=== PATIENT | male | born 1960 | race Two or more races ===

== ENCOUNTER 2018-01-12 11:07 | Inpatient (IN) ==
[2018-01-12] MEDS ORDERED: Bisacodyl 10 MG Supp RECTAL PRN (17:59)
--- NOTE | 2018-01-12 18:44 | P.HPIM ---
History of Present Illness Primary Care Physician: UNKNOWN Patient is a pleasant 57-year-old male with past medical history of asthma, hypertension, hyperlipidemia, and diabetes who presents to emergency department for worsening shortness of breath. Patient in usual state of health prior to development of symptoms 24 hours prior to presentation. Patient reports that he started to experience a cough yesterday nonproductive in nature, with some chest pain occasionally over the left side. Patient denied fever, chills, headache, flushed feeling, dizziness, disequilibrium, falls, wheezing, or GI abdominal pain. Review of systems positive for sore throat, tender neck glands , diarrhea, and generalized weakness. Patient feels much better on evaluation today. Of note patient is an active smoker of approximately 2 packs/day for the last 10 years. Patient denied unintentional weight loss. Patient denied hemoptysis, dysphagia, or odynophagia. No family history of malignancy noted by patient only diabetes in mother. In emergency department patient received imaging concerning for pneumonia for which he was transferred over to [place] for further medical management. Lab work also significant for hyponatremia and white blood cell count of 20. CT angiogram negative for pulmonary embolism but other acute findings noted. Chest x-ray significant for a diffuse patchy interstitial and airspace infiltrates throughout the right lung, upper lung greater than the right lower lung suggestive of pneumonia. Diagnosis (1) Asthma: (2) Hyponatremia: Inpatient Certification Inpatient Certification: I certify that the inpatient services were ordered in accordance with Medicare regulations governing the order. This includes certification that hospital inpatient services are reasonable and necessary and in the case of services not specified as inpatient-only under 42 CFR 419.22(n), that they are appropriately provided as inpatient services in accordance to with the 2-midnight benchmark under 43 CFR 412.3(e) Estimated Total Length of Stay (Days): 3 Plans for Post Hospital Care: Not yet determined Review of Systems Review of Systems: all other systems reviewed are negative [facility] Medical History Medical History COPD (chronic obstructive pulmonary disease) (Acute) Diabetes (Acute) Hypercholesteremia (Acute) Social History Social History Smoking Status: Never smoker How Often Do You Have a Drink Containing Alcohol: Never Medications and Allergies Allergies Allergy/AdvReac Type Severity Reaction Status Date / Time No Known Allergies Allergy Verified 01/12/18 11:20 Home Medications Medication Instructions Recorded Confirmed Type albuterol sulfate [ProAir HFA] 2 inh INHALATION Q4-6H 01/12/18 01/12/18 History atorvastatin 40 mg PO DAILY 01/12/18 01/12/18 History insulin glargine [Lantus Solostar 60 unit SUBCUT HS 01/12/18 01/12/18 History U-100 Insulin] linagliptin [Tradjenta] 5 mg PO DAILY 01/12/18 01/12/18 History metformin 1,000 mg PO BID 01/12/18 01/12/18 History mirtazapine 7.5 mg PO DAILY 01/12/18 01/12/18 History Active Medications: Active Medications Al Hydroxide/Mg Hydroxide (Milk Of Magnesia Liq) 30 ml PO Q12H PRN PRN Reason: Mild Constipation Albuterol (Ventolin Hfa Inh) puff INH Q4-6H DIVYA Atorvastatin Calcium (Lipitor) 40 mg PO HS DIVYA Bisacodyl (Dulcolax Supp) 10 mg RECTAL DAILY PRN PRN Reason: SEVERE CONSITIPATION Heparin Sodium (Porcine) (Heparin Inj) 5,000 units SQ Q8HR DIVYA Sodium Chloride (Ns Inj) 1,000 mls @ 100 mls/hr IV.CONT .Q10H DIVYA Azithromycin 500 mg/ Sodium (Chloride) 250 mls @ 250 mls/hr IV.SIG Q24H DIVYA Ceftriaxone Sodium 2,000 mg/ (Sodium Chloride) 100 mls @ 200 mls/hr IV.SIG Q24H DIVYA Lactulose (Lactulose Liq) 30 ml PO DAILY PRN PRN Reason: SEVERE CONSITIPATION Mirtazapine (Remeron) 7.5 mg PO HS DIVYA Ondansetron HCl (Zofran Inj) 4 mg IV.PUSH Q6H PRN PRN Reason: NAUSEA OR VOMITING Sennosides (Senokot) 17.2 mg PO Q12H PRN PRN Reason: Moderate Constipation Sodium Chloride (Ns Flush) 2 ml IV.FLUSH BID DIVYA Sodium Chloride (Ns Flush) 2 ml IV.FLUSH PRN PRN PRN Reason: FLUSH AFTER USING IV ACCESS Caprini VTE Risk Assessment Caprini VTE Risk Assessment: Moderate/High Risk (score >= 2) Caprini Risk Assessment Model: Point Value = 1 Point Value = 2 Point Value = 3 Point Value = 5 Age 41-60 Minor surgery BMI > 25 kg/m2 Swollen legs Varicose veins or History of unexplained or recurrent spontaneous Oral contraceptives or hormone replacement Sepsis (< 1 month) Serious lung disease, including pneumonia (< 1 month) Abnormal pulmonary function Acute myocardial infarction Congestive heart failure (< 1 month) History of inflammatory bowel disease Medical patient at bed rest Age 61-74 Arthroscopic surgery Major open surgery (> 45 min) Laparoscopic surgery (> 45 min) Malignancy Confined to bed (> 72 hours) Immobilizing plaster cast Central venous access Age >= 75 History of VTE Family history of VTE Factor V Leiden Prothrombin [id number] Lupus anticoagulant Anticardiolipin antibodies Elevated serum homocysteine Heparin-induced thrombocytopenia Other congenital or acquired thrombophilia Stroke (< 1 month) Elective arthroplasty Hip, pelvis, or leg fracture Acute spinal cord injury (< 1 month) Prophylaxis Regimen: Total Risk Factor Score Risk Level Prophylaxis Regimen 0-1 Low Early ambulation 2 Moderate Order ONE of the following: *Sequential Compression Device (SCD) *Heparin 5000 units SQ BID 3-4 Higher Order ONE of the following medications: *Heparin 5000 units SQ TID *Enoxaparin/Lovenox 40 mg SQ daily (WT < 150 kg, CrCl > 30 mL/min) *Enoxaparin/Lovenox 30 mg SQ daily (WT < 150 kg, CrCl > 10-29 mL/min) *Enoxaparin/Lovenox 30 mg SQ BID (WT < 150 kg, CrCl > 30 mL/min) AND/OR *Sequential Compression Device (SCD) 5 or more Highest Order ONE of the following medications: *Heparin 5000 units SQ TID (Preferred with Epidurals) *Enoxaparin/Lovenox 40 mg SQ daily (WT < 150 kg, CrCl > 30 mL/min) *Enoxaparin/Lovenox 30 mg SQ daily (WT < 150 kg, CrCl > 10-29 mL/min) *Enoxaparin/Lovenox 30 mg SQ BID (WT < 150 kg, CrCl > 30 mL/min) AND *Sequential Compression Device (SCD) Assessment and Plan (1) Asthma: Code(s): J45.909 - Unspecified asthma, uncomplicated Status: Acute (2) Hyponatremia: Code(s): E87.1 - Hypo-osmolality and hyponatremia Status: Acute Plan Pulmonary: Community-acquired pneumonia, asthma CAR: diffuse patchy interstitial and airspace infiltrates throughout the right lung, upper lung greater than the right lower lung suggestive of pneumonia. CTA: No evidence of pulmonary embolus. Extensive alveolar consolidation of the right upper lobe consistent with possible bacterial pneumonia. Right paratracheal, AP window and prevascular mediastinal lymphadenopathy is noted. The right paratracheal lymph node measures 4.1 cm. Bilateral hilar lymphadenopathy is also noted. Given patient's smoking history and prevascular mediastinal lymphadenopathy measuring up to 4.1 cm. Will request pulmonary evaluation while inpatient. Continue empiric antibiotic therapy for now with azithromycin and ceftriaxone Legionella, mycoplasma, pro-calcitonin level Blood cultures obtained DuoNeb as needed shortness of breath Nephrology: Hyponatremia Patient appears to be euvolemic. Euvolemic hyponatremia is concerning for SIADH which can be associated with malignancy and given chest x-ray/CT finding will have pulmonary evaluate Repeat BNP No signs or symptoms of hyponatremia exhibited in the patient. Monitor for overcorrection of hyponatremia. No more than 6-8 mEq correction over 24-hour. Endocrinology: Diabetes type 2 Hold oral hypoglycemic medications while hospitalized. Weightbase Levemir 20 units with insulin correction Hemoglobin A1c Hold metformin, hold Tradjenta Cardiology: Hyperlipidemia Continue atorvastatin 40 mg at bedtime CODE STATUS: Full code DVT prophylaxis: Lovenox Disposition: [facility]
[2018-01-12] MEDS: Mirtazapine 15 MG Tablet PO SCH (21:02)
[2018-01-12] MEDS: Heparin - SQ 10,000 UNITS/ML Vial SQ SCH (21:02)
[2018-01-12] MEDS: Insulin Detemir Inj 1,000 UNIT/10 ML Vial SQ SCH (21:04)
[2018-01-12] MEDS: Sod Chloride 0.9% Inj 1,000 ML IV.CONT SCH (21:05)
[2018-01-12] MEDS: Insulin NovoLOG Aspart Correctional Sugar Inj SQ SCH (21:05)
[2018-01-12 21:13] LABS: Potassium 4.5 meq/L (3.5-5.1)
[2018-01-12 21:16] LABS: Calcium 8.6 mg/dL (8.5-10.1)
[2018-01-12 21:17] LABS: Carbon Dioxide 31.4 meq/L (21.0-32.0)
[2018-01-12] MEDS: Azithromycin Inj 500 MG in Sodium Chlor 0.9% Inj 250 ML IV.SIG SCH (21:30)
[2018-01-13] MEDS: MethylPREDNISolone Sod Succinate Inj 40 MG/ML Vial IV.PUSH SCH ×3 (00:07→21:44)
[2018-01-13] MEDS: guaiFENesin 600 MG ER Tablet PO SCH ×3 (00:07→21:42)
--- NOTE | 2018-01-13 06:04 | XR ---
EXAM DATE: 01/13/2018 5:51 AM EST AGE/SEX: 57 years / Male INDICATIONS: Shortness of breath. CLINICAL DATA: This is the patient's subsequent encounter. Patient reports that signs and symptoms h ave been present for 2 days and indicates a pain score of Nonresponsive. MEDICAL/SURGICAL HISTORY: Chronic obstructive pulmonary disease. Diabetes mellitus type II. No ne. COMPARISON: Chest x-ray 01/12/2018. FINDINGS: A single AP view of the chest demonstrates worsening consolidation involving the right upper lobe. Le ft lung is clear. No effusions. Heart is mildly enlarged. CONCLUSION: Worsening right lung infiltrate. Electronically signed by: Favian Bailey MD 01/13/2018 6:03 AM EST
[2018-01-13] MEDS: Heparin - SQ 10,000 UNITS/ML Vial SQ SCH ×3 (06:09→21:42)
[2018-01-13] MEDS: Sod Chloride 0.9% Inj 1,000 ML IV.CONT SCH ×2 (06:12→21:41)
[2018-01-13] MEDS: Insulin NovoLOG Aspart Correctional Sugar Inj SQ SCH ×4 (08:40→21:53)
--- NOTE | 2018-01-13 09:19 | P.PNIM ---
Subjective Interval history: Patient seen and evaluated this morning at the bedside. Patient endorses feeling warm sensation in his body but denies subjective chills. Patient denied any shortness of breath currently. Patient does report continued cough that is dry in nature. Patient with diarrhea overnight witnessed by myself which is watery and green. Stool study pending collection. Physical Exam Vital signs: Last Vital Signs Temp 96.7 F L 01/13/18 04:00 Pulse 93 H 01/13/18 04:00 Resp 19 01/13/18 04:00 BP 143/78 H 01/13/18 04:00 Pulse Ox 95 01/13/18 04:00 Intake & Output 01/11/18 01/12/18 01/13/18 01/14/18 06:59 06:59 06:59 06:59 Intake Total 3310 / 3310 Output Total 1370 / 1370 Balance 1940 / 1940 Weight 115.3 kg General: No acute distress, conversational. Very obese male HEENT: EOMI, no submandibular or sublingual lymph node tenderness Respiratory: Expiratory wheeze noted bilaterally, no intercostal muscle use. Cardiovascular: S1/S2. No murmur noted Gastrointestinal: Large abdomen (chronic), soft, no guarding or rebound. Positive bowel sounds Extremity: No lower extremity edema appreciated Results Labs CBC & Chem 7: 01/13/18 16:05 01/12/18 20:55 Imaging Imaging: Impressions Chest X-Ray 01/13/18 06:00 CONCLUSION: Worsening right lung infiltrate. Assessment and Plan (1) Asthma: Code(s): J45.909 - Unspecified asthma, uncomplicated Status: Acute (2) Hyponatremia: Code(s): E87.1 - Hypo-osmolality and hyponatremia Status: Acute Plan Pulmonary: Community-acquired pneumonia, asthma CAR: diffuse patchy interstitial and airspace infiltrates throughout the right lung, upper lung greater than the right lower lung suggestive of pneumonia. CTA: No evidence of pulmonary embolus. Extensive alveolar consolidation of the right upper lobe consistent with possible bacterial pneumonia. Right paratracheal, AP window and prevascular mediastinal lymphadenopathy is noted. The right paratracheal lymph node measures 4.1 cm. Bilateral hilar lymphadenopathy is also noted. Given patient's smoking history and prevascular mediastinal lymphadenopathy measuring up to 4.1 cm. Pulmonary to evaluate case Continue empiric antibiotic therapy for now with azithromycin and ceftriaxone Legionella, mycoplasma - NEGATIVE Blood cultures obtained - NGTD DuoNeb as needed shortness of breath Slowly begin to titrate down on Solu-Medrol to 40 mg IV every 12 hours. Monitor blood glucose level Nephrology: Hyponatremia Patient appears to be euvolemic. Euvolemic hyponatremia is concerning for SIADH which can be associated with malignancy and given chest x-ray/CT finding will have pulmonary evaluate No signs or symptoms of hyponatremia exhibited in the patient. Monitor for overcorrection of hyponatremia. No more than 6-8 mEq correction over 24-hour. Endocrinology: Diabetes type 2 Hold oral hypoglycemic medications while hospitalized. Weightbase Levemir 20 units with insulin correction Hold metformin, hold Tradjenta Cardiology: Hyperlipidemia Continue atorvastatin 40 mg at bedtime Infectious disease: Asympotamatic bacturia - no urinary complaints or signs of active infection. NO CVA tenderness or suprapubic discomfort. CODE STATUS: Full code DVT prophylaxis: Lovenox Disposition: MedSurg Diet: DM Progress Note: Quality VTE Deep Vein Thrombosis/Pulmonary Embolism Present on Admission: No
--- NOTE | 2018-01-13 15:50 | MB ---
cc: Barbara Jimenez MD DATE: 01/13/2018 REASON FOR CONSULTATION: Respiratory failure, pneumonia; rule out underlying malignancy. HISTORY OF PRESENT ILLNESS: Mr. Magana is a 57-year-old male who has known history of bronchial asthma since childhood; as well, he smoked for many years. He has a history of hypertension, hyperlipidemia; he is morbidly obese, admitted with increasing shortness of breath, increasing chest wheeze. A CT angiogram was done revealing diffuse patchy lung infiltrates, more so on the right, suspicious for underlying pneumonia. A CT scan of the chest, which is not available to me at this time is reported with underlying right paratracheal and AP window mediastinal adenopathy. The largest lymph node is 4.1 cm with bilateral hilar adenopathy as well. I am asked to see the patient at this time for same. He denies history of fever, chills or hemoptysis at present. PAST MEDICAL HISTORY: Bronchial asthma, probably COPD as well; diabetes mellitus, hyperlipidemia. SOCIAL HISTORY: Long smoking history. ALLERGIES: NONE KNOWN TO MEDICATION. FAMILY HISTORY: Noncontributory. REVIEW OF SYSTEMS: A 12-point review of systems as per HPI and past history, otherwise negative. CURRENT MEDICATIONS: Include Atorvastatin, Zithromax, ceftriaxone, nebulized albuterol and Ipratropium. PHYSICAL EXAMINATION: GENERAL: Patient is alert. VITAL SIGNS: Temperature 97, pulse 86, respirations 18, blood pressure 130/84, oxygen saturation 94% on 4 liters oxygen nasal cannula. HEENT: Unremarkable. Eyes without icterus. NECK: Without adenopathy or thyroid enlargement. CHEST: Scattered rhonchi, wheeze bilaterally. CARDIAC: PMI distant. S1, S2 audible. No murmur. No rub. ABDOMEN: Obese, lax bowel sounds audible. EXTREMITIES: No clubbing, cyanosis. Trace edema. LABORATORY DATA: Sodium 125, potassium 4.5, BUN 9, creatinine 1.1. IMPRESSION: 1. Asthma exacerbation. 2. Pneumonia. 3. Mediastinal adenopathy. 4. Obesity. PLAN: The patient is receiving bronchodilator therapy for the underlying bronchial asthma and/or COPD. Antibiotic therapy has been instituted and appropriately so for underlying lung infiltrates. His mediastinal adenopathy is concerning given the size of the nodule and lymph nodes; the largest being 4.1 cm and underlying malignancy suspect. Would continue his antibiotics as well as his bronchodilators and followup a chest x-ray and subsequently CT scan of the chest to assess resolution. Bronchoscopy, if no resolution or if further deterioration occurs, will be needed. I will follow his care along with you and, depending on progress, proceed I do thank you for asking me to partake in Chino Ramirez' care. Barbara Jimenez MD WWW/marii , 03:15 PM , 03:25 PM
[2018-01-13 16:14] LABS: Baso # (Auto) 0.6 th/mm3 (0.0-0.2); Baso % (Auto) 3.3 % (0.0-2.0); Eos % (Auto) 0.1 % (0.0-4.0); Hematocrit 41.2 % (39.0-51.0); Hemoglobin 13.6 gm/dL (13.0-17.0); Lymph # (Auto) 0.4 th/mm3 (1.0-4.8); Lymph % (Auto) 2.4 % (9.0-44.0); Mean Corpuscular HGB Conc 32.9 % (32.0-36.0); Mean Corpuscular Hemoglobin 27.6 pg (27.0-34.0); Mean Corpuscular Volume 83.8 fL (80.0-100.0); Mean Platelet Volume 8.4 fL (7.0-11.0); Mono # (Auto) 1.1 th/mm3 (0.0-0.9); Mono % (Auto) 6.7 % (0.0-8.0); Neut # (Auto) 14.6 th/mm3 (1.8-7.7); Neut % (Auto) 87.5 % (16.0-70.0); Platelet Count 297 th/mm3 (150-450); Red Blood Count 4.92 mil/mm3 (4.50-5.90); White Blood Count 16.7 th/mm3 (4.0-11.0)
[2018-01-13 16:39] LABS: ABG PCO2 69 mmHg (38-42); ABG PO2 83 mmHg (61-120)
[2018-01-13] MEDS: Mirtazapine 15 MG Tablet PO SCH (21:42)
[2018-01-13] MEDS: Insulin Detemir Inj 1,000 UNIT/10 ML Vial SQ SCH (21:57)
[2018-01-13] MEDS: Azithromycin Inj 500 MG in Sodium Chlor 0.9% Inj 250 ML IV.SIG SCH (22:44)
[2018-01-13 23:13] LABS: ABG Base Excess 4.9 mmol/L (-2-2); ABG PCO2 58 mmHg (38-42); ABG PO2 79 mmHg (61-120)
[2018-01-14] MEDS: Sod Chloride 0.9% Inj 1,000 ML IV.CONT SCH ×2 (02:45→12:40)
[2018-01-14 05:29] LABS: Hematocrit 41.6 % (39.0-51.0); Hemoglobin 13.4 gm/dL (13.0-17.0); Mean Corpuscular HGB Conc 32.3 % (32.0-36.0); Mean Corpuscular Volume 83.5 fL (80.0-100.0); Mean Platelet Volume 8.8 fL (7.0-11.0); Platelet Count 310 th/mm3 (150-450); Red Blood Count 4.98 mil/mm3 (4.50-5.90); Red Cell Distribution Width 14.3 % (11.6-17.2); White Blood Count 14.9 th/mm3 (4.0-11.0)
[2018-01-14 05:32] LABS: Chloride 92 meq/L (98-107); Potassium 4.5 meq/L (3.5-5.1); Sodium 129 meq/L (136-145)
[2018-01-14 05:35] LABS: Anion Gap 3 meq/L (5-15); Calcium 8.8 mg/dL (8.5-10.1); Carbon Dioxide 33.6 meq/L (21.0-32.0); Glucose,Random 191 mg/dL (74-106); Magnesium 1.6 mg/dL (1.5-2.5)
[2018-01-14 05:36] LABS: Blood Urea Nitrogen 19 mg/dL (7-18)
[2018-01-14 05:39] LABS: Glomerular Filtration Rate Greater Than 89 mL/min (>89)
[2018-01-14] MEDS: Heparin - SQ 10,000 UNITS/ML Vial SQ SCH ×3 (06:31→21:00)
[2018-01-14] MEDS: Insulin NovoLOG Aspart Correctional Sugar Inj SQ SCH ×4 (08:18→21:11)
[2018-01-14] MEDS: MethylPREDNISolone Sod Succinate Inj 40 MG/ML Vial IV.PUSH SCH ×2 (08:19→20:59)
[2018-01-14] MEDS: guaiFENesin 600 MG ER Tablet PO SCH ×2 (08:19→20:58)
[2018-01-14] MEDS ORDERED: Sod Phosphate/Sod Biphosphate (Adult) Enema 133 ML Bottle RECTAL PRN (13:42)
[2018-01-14] MEDS ORDERED: Dextrose 50% in Water 50 ML Vial IV.PUSH PRN (13:42)
[2018-01-14] MEDS ORDERED: Bisacodyl 10 MG Supp RECTAL PRN (13:42)
--- NOTE | 2018-01-14 14:01 | P.PNIM ---
Subjective Interval history: 57yo m w copd admitted with cap, subsequently decompensated hypercapnic hypoxic respiratory failure requiring rescue bipap transferred to ICU, had ct scan of chest w concernin RUL pneumonia with mediastinal LAD of 4.1cm pt seen and examined doing a little better, he is on 6 l nc and was reportedly using his inhalers too often, he denies pain, sob is a little improved, denies sputum production but has some cough Physical Exam Vital signs: Last Vital Signs Temp 97.7 F 01/14/18 04:01 Pulse 92 H 01/14/18 11:00 Resp 28 H 01/14/18 11:00 BP 142/86 H 01/14/18 11:00 Pulse Ox 87 L 01/14/18 11:00 Intake & Output 01/12/18 01/13/18 01/14/18 01/15/18 06:59 06:59 06:59 06:59 Intake Total 3310 / 3310 3250 / 3250 1000 / 1000 Output Total 1370 / 1370 1400 / 1400 Balance 1940 / 1940 1850 / 1850 1000 / 1000 Weight 115.3 kg 116.7 kg obese pleasant 57yo m aaox3 nad heart s1s2 reg lungs b/l coarse rhonchi and diffuse insp wheeze L base, Rupper abd obese protuberant, nontender nondt pos bs ext no edema, no clubbing no cyanosis, no calf tenderness Results Labs CBC & Chem 7: 01/14/18 04:12 01/14/18 04:12 Labs: Microbiology 01/13/18 06:21 Sputum - Expectorated Sputum Gram Stain - Final 01/13/18 06:21 Sputum - Expectorated Sputum Sputum Culture - Preliminary Heavy growth normal respiratory eloisa at 24 hours 01/12/18 19:00 Urine - Clean Catch Urine Streptococcus pneumoniae Antigen ( M - Final Presumptive negative for streptococcus pneumoniae antigen, suggesting no current or recent infection. Infection due to Streptococcus pneumoniae cannot be ruled out since the antigen present in the sample may be below the detection limit of the test. 01/12/18 19:00 Urine - Clean Catch Urine Legionella Antigen - Final Presumptive negative for Legionella pneumophila serogroup 1 antigen in urine, suggesting no recent or recurrent infection. Infection due to Legionella cannot be ruled out since other serogroups and species may cause disease, antigen may not be present in urine in early infection, and the level of antigen present in the urine may be below the detection limit of the test. Assessment and Plan (1) Asthma: Code(s): J45.909 - Unspecified asthma, uncomplicated Status: Acute (2) Hyponatremia: Code(s): E87.1 - Hypo-osmolality and hyponatremia Status: Acute ACUTE HYPOXIC RESPIRATORY FAILURE - cont nc , pulm tx, supportive tx. ACUTE EXACERBATION OF COPD - iv steroids, add ics and labd, CAP RUL -- cont empiric abx, follow up cx sputum nml eloisa, MEIDASTINAL LAD reactive due to infection vs other, for possible bronchoscopy if no resolution w treatment of infection, follow up w pulmonology MORBID OBESITY BMI 40 - diet activity as tolerated DM insulin dependent uncontrolled cont iss, diet accuchecks, wean steroids DYSLIPIDEMIA - resume statin HYPONATREMIA - siadh? due to pulm infection, improving, mild contracture alkalosis post diuresis, stable, TOBACCO ABUSE nicotine addiction - nicoderm prn wd sx and counseling to stop dvt prophylaxis, heparin sq transfer to [facility] planning home 1-2 days when stable Progress Note: Quality VTE Deep Vein Thrombosis/Pulmonary Embolism Present on Admission: No
[2018-01-14] MEDS: Azithromycin 250 MG Tablet PO SCH (15:00)
--- NOTE | 2018-01-14 18:35 | P.PN ---
Subjective Interval history: ALERT NOW IN ICU TRANSFERRED FOR BIPAP THERAPY Physical Exam Vital signs: Vital Signs 01/13/18 20:35 01/13/18 21:02 01/13/18 21:11 Temperature 97.7 F Pulse Rate 94 H 92 H Respiratory Rate 18 Blood Pressure 130/74 Pulse Oximetry 96 96 96 01/13/18 21:30 01/13/18 22:00 01/13/18 23:00 Temperature Pulse Rate 92 H 92 H 94 H Respiratory Rate 22 37 H 24 Blood Pressure 131/88 140/77 Pulse Oximetry 93 L 95 01/14/18 00:00 01/14/18 00:55 01/14/18 04:00 Temperature 97.5 F L Pulse Rate 92 H Respiratory Rate 31 H Blood Pressure 144/88 H Pulse Oximetry 95 95 96 01/14/18 04:01 01/14/18 05:00 01/14/18 06:00 Temperature 97.7 F Pulse Rate 92 H 92 H 88 Respiratory Rate 21 17 23 Blood Pressure 140/87 133/78 110/79 Pulse Oximetry 95 92 L 91 L 01/14/18 07:00 01/14/18 08:00 01/14/18 09:00 Temperature Pulse Rate 92 H 86 94 H Respiratory Rate 17 21 28 H Blood Pressure 140/88 130/84 135/83 Pulse Oximetry 96 95 92 L 01/14/18 10:00 01/14/18 11:00 01/14/18 12:00 Temperature 98.3 F Pulse Rate 96 H 92 H 92 H Respiratory Rate 17 28 H 17 Blood Pressure 131/87 142/86 H 145/98 H Pulse Oximetry 87 L 93 L 01/14/18 13:00 01/14/18 14:00 01/14/18 14:05 Temperature Pulse Rate 96 H 96 H 94 H Respiratory Rate 27 H 23 19 Blood Pressure 145/86 H 150/86 H Pulse Oximetry 92 L 90 L 01/14/18 15:00 01/14/18 16:00 01/14/18 17:00 Temperature Pulse Rate 92 H 92 H 88 Respiratory Rate 22 24 24 Blood Pressure 148/82 H 134/83 142/84 H Pulse Oximetry 95 93 L 93 L Intake & Output 01/13/18 01/14/18 01/14/18 18:59 06:59 18:59 Intake Total 1900 / 1900 1350 / 1350 1000 / 1000 Output Total 300 / 300 1100 / 1100 1720 / 1720 Balance 1600 / 1600 250 / 250 -720 / -720 Weight 116.7 kg Intake: IV 900 / 900 1350 / 1350 1000 / 1000 NS Inj 1,000 ML @ 100 mls/hr IV 900 / 900 1000 / 1000 1000 / 1000 .CONT .Q10H DIVYA Rx#:[id number] Azithromycin Inj 500 MG In NS 250 / 250 Inj 250 ML @ 250 mls/hr IV.SIG Q24H DIVYA Rx#:[id number] Rocephin Inj 2,000 MG In NS Inj 100 / 100 100 ML @ 200 mls/hr IV.SIG Q24H DIVYA Rx#:[id number] Oral 1000 / 1000 Output: Urine 300 / 300 1100 / 1100 1720 / 1720 Other: Date of Last Bowel Movement 01/13/18 01/12/18 01/12/18 - Constitutional no acute distress - Routine HEENT Exam Head: Present: normocephalic Eye: Present: EOMI, PERRL ENT: Present: mucous membranes moist - Routine Neck Exam Present: supple - Routine Respiratory Exam Present: CTA bilaterally - Routine Cardiovascular Exam Present: RRR, S1, S2 - Routine Abdominal Exam Present: soft, normoactive bowel sounds - Routine Neurological Exam Present: alert, oriented X3 Results - Labs CBC & Chem 7: 01/14/18 04:12 01/14/18 04:12 Laboratory Results - last 24 hr 01/13/18 01/13/18 01/14/18 21:52 23:00 04:12 WBC 14.9 H RBC 4.98 Hgb 13.4 Hct 41.6 MCV 83.5 MCH 27.0 MCHC 32.3 RDW 14.3 Plt Count 310 MPV 8.8 Puncture Site Right radial Patient Temperature 98.6 O2 Saturation 94 ABG pH 7.34 L ABG pCO2 58 H* ABG pO2 79 ABG HCO3 30 H ABG O2 Content 17.9 ABG Base Excess 4.9 H ABG Methemoglobin 0.5 Domenic Test Y Hemoglobin 13.5 Carboxyhemoglobin 1.6 O2 Delivery Device Bipap Vent Setting [id number] Inspired O2 35 Critical Value Yes Sodium Potassium Chloride Carbon Dioxide Anion Gap BUN Creatinine Estimated GFR POC Glucose 113 H Random Glucose Calcium Magnesium 01/14/18 01/14/18 01/14/18 04:12 08:16 12:20 WBC RBC Hgb Hct MCV MCH MCHC RDW Plt Count MPV Puncture Site Patient Temperature O2 Saturation ABG pH ABG pCO2 ABG pO2 ABG HCO3 ABG O2 Content ABG Base Excess ABG Methemoglobin Domenic Test Hemoglobin Carboxyhemoglobin O2 Delivery Device Vent Setting Inspired O2 Critical Value Sodium 129 L Potassium 4.5 Chloride 92 L Carbon Dioxide 33.6 H Anion Gap 3 L BUN 19 H Creatinine 0.58 L Estimated GFR Greater than 89 POC Glucose 144 H 160 H Random Glucose 191 H Calcium 8.8 Magnesium 1.6 01/14/18 17:19 WBC RBC Hgb Hct MCV MCH MCHC RDW Plt Count MPV Puncture Site Patient Temperature O2 Saturation ABG pH ABG pCO2 ABG pO2 ABG HCO3 ABG O2 Content ABG Base Excess ABG Methemoglobin Domenic Test Hemoglobin Carboxyhemoglobin O2 Delivery Device Vent Setting Inspired O2 Critical Value Sodium Potassium Chloride Carbon Dioxide Anion Gap BUN Creatinine Estimated GFR POC Glucose 142 H Random Glucose Calcium Magnesium Microbiology 01/13/18 06:21 Sputum - Expectorated Sputum Gram Stain - Final 01/13/18 06:21 Sputum - Expectorated Sputum Sputum Culture - Preliminary Heavy growth normal respiratory eloisa at 24 hours 01/12/18 19:00 Urine - Clean Catch Urine Streptococcus pneumoniae Antigen ( M - Final Presumptive negative for streptococcus pneumoniae antigen, suggesting no current or recent infection. Infection due to Streptococcus pneumoniae cannot be ruled out since the antigen present in the sample may be below the detection limit of the test. 01/12/18 19:00 Urine - Clean Catch Urine Legionella Antigen - Final Presumptive negative for Legionella pneumophila serogroup 1 antigen in urine, suggesting no recent or recurrent infection. Infection due to Legionella cannot be ruled out since other serogroups and species may cause disease, antigen may not be present in urine in early infection, and the level of antigen present in the urine may be below the detection limit of the test. Assessment and Plan - Plan RESOIRATORY FAILURE HYPOXIC / HYPERCAPNIC MAGEN/CSA SUSPECT PNA, R/O CA ASTHMA PLAN O2 NEEDED ANTIBX BRONCHODILATOR THERAPY BIPAP NEEDED
[2018-01-14] MEDS: Docusate Sodium 100 MG Capsule PO SCH (20:58)
[2018-01-14] MEDS: Mirtazapine 15 MG Tablet PO SCH (20:59)
[2018-01-14] MEDS: Insulin Detemir Inj 1,000 UNIT/10 ML Vial SQ SCH (20:59)
[2018-01-14] MEDS: Tiotropium Bromide 18 MCG/ACT Inhaler INH SCH (21:47)
[2018-01-14] MEDS: Budesonide-Formoterol 160/4.5 MCG 6 GM Inhaler INH SCH (21:47)
[2018-01-15 05:19] LABS: Baso # (Auto) 0.2 th/mm3 (0.0-0.2); Baso % (Auto) 1.5 % (0.0-2.0); Hematocrit 41.5 % (39.0-51.0); Hemoglobin 13.4 gm/dL (13.0-17.0); Lymph # (Auto) 0.7 th/mm3 (1.0-4.8); Lymph % (Auto) 5.2 % (9.0-44.0); Mean Corpuscular HGB Conc 32.2 % (32.0-36.0); Mean Corpuscular Hemoglobin 26.9 pg (27.0-34.0); Mean Corpuscular Volume 83.5 fL (80.0-100.0); Mean Platelet Volume 8.8 fL (7.0-11.0); Mono # (Auto) 0.8 th/mm3 (0.0-0.9); Mono % (Auto) 5.6 % (0.0-8.0); Neut % (Auto) 87.7 % (16.0-70.0); Platelet Count 321 th/mm3 (150-450); Red Blood Count 4.97 mil/mm3 (4.50-5.90); Red Cell Distribution Width 14.2 % (11.6-17.2); White Blood Count 13.7 th/mm3 (4.0-11.0)
[2018-01-15 05:24] LABS: Chloride 92 meq/L (98-107); Potassium 4.4 meq/L (3.5-5.1); Sodium 132 meq/L (136-145)
[2018-01-15 05:27] LABS: Anion Gap 4 meq/L (5-15); Calcium 8.6 mg/dL (8.5-10.1); Carbon Dioxide 36.5 meq/L (21.0-32.0); Glucose,Random 196 mg/dL (74-106); Magnesium 1.2 mg/dL (1.5-2.5)
[2018-01-15 05:28] LABS: Blood Urea Nitrogen 16 mg/dL (7-18)
[2018-01-15 05:31] LABS: Glomerular Filtration Rate Greater Than 89 mL/min (>89)
[2018-01-15] MEDS: Heparin - SQ 10,000 UNITS/ML Vial SQ SCH ×3 (06:31→21:30)
[2018-01-15] MEDS: Insulin NovoLOG Aspart Correctional Sugar Inj SQ SCH ×4 (09:12→21:29)
[2018-01-15] MEDS: Docusate Sodium 100 MG Capsule PO SCH ×2 (09:15→20:31)
[2018-01-15] MEDS: Tiotropium Bromide 18 MCG/ACT Inhaler INH SCH (09:15)
[2018-01-15] MEDS: MethylPREDNISolone Sod Succinate Inj 40 MG/ML Vial IV.PUSH SCH ×2 (09:15→20:39)
[2018-01-15] MEDS: Multivitamin/Minerals Therapeutic Tablet PO SCH (09:15)
[2018-01-15] MEDS: Budesonide-Formoterol 160/4.5 MCG 6 GM Inhaler INH SCH ×2 (09:15→21:30)
[2018-01-15] MEDS: Azithromycin 250 MG Tablet PO SCH (09:15)
[2018-01-15] MEDS: guaiFENesin 600 MG ER Tablet PO SCH ×2 (09:15→20:31)
[2018-01-15] MEDS: Polyethylene Glycol 3350 17 GM Packet PO SCH (09:16)
--- NOTE | 2018-01-15 12:52 | P.DIET ---
Nutritional Evaluation Type of nutrition evaluation: initial Nutrition screening: [facility] Screening comments: 01/14/18 [facility] Diet Education Subjective Subjective Comments: Pt talking w/his on the phone and pt request his speak w/me. Pt's purchases and prepares the pt's food. Pt's says she cannot be present during diet education d/t she does not have a car at this time. Pt's requests diet education material in Kenyan for her and [place] for the pt. Pt provided w/diet education for 1800ADA diet via [employer] video interpreting w/ Family Development Specialist Jamal # [id number]. Objective - Diagnosis Pneumonia, hyponatremia, Diabetes - Objective % IBW: 173 Dietitian Reviewed in Medical Record: Current diet, Curent medications, Intake & Output, Labs, Medical history Objective Comments: PMH includes: Asthma, COPD, DM, hypercholesterolemia POC Glucose 165 Lipitor, Levemir Assessment Assessment: Pt is an [facility] for Diet Education. Pt provided w/diet education for 1800ADA diet via [employer] video interpreting w/Family Development Specialist Jamal # [id number]. Pt had no questions at time of this visit. RD contact info provided for additional questions as needed. Pt provided w/both [place] and [place]yan written education for 1800ADA Consistent Carbohydrate diet. RD to follow as needed. Recommendations: 1. Pt provided w/diet education for 1800ADA diet via [employer] video interpreting w/Family Development Specialist Jamal # [id number] 2. RD contact info provided for additional questions as needed 3. Pt provided w/both [place] and Kenyan written education for 1800ADA Consistent Carbohydrate diet 4. RD to follow as needed
--- NOTE | 2018-01-15 19:57 | P.PNIM ---
Physical Exam Vital signs: Last Vital Signs Temp 97.9 F 01/15/18 16:00 Pulse 90 01/15/18 16:00 Resp 28 H 01/15/18 16:00 BP 135/83 01/15/18 16:00 Pulse Ox 93 L 01/15/18 16:27 Intake & Output 01/13/18 01/14/18 01/15/18 01/16/18 06:59 06:59 06:59 06:59 Intake Total 3310 / 3310 3250 / 3250 2350 / 2350 750 / 750 Output Total 1370 / 1370 1400 / 1400 2520 / 2520 1250 / 1250 Balance 1940 / 1940 1850 / 1850 -170 / -170 -500 / -500 Weight 115.3 kg 116.7 kg 113.4 kg Results Labs CBC & Chem 7: 01/15/18 04:17 01/15/18 04:17 Labs: Microbiology 01/13/18 06:21 Sputum - Expectorated Sputum Gram Stain - Final 01/13/18 06:21 Sputum - Expectorated Sputum Sputum Culture - Final Heavy growth normal respiratory eloisa Assessment and Plan (1) Asthma: Code(s): J45.909 - Unspecified asthma, uncomplicated Status: Acute (2) Hyponatremia: Code(s): E87.1 - Hypo-osmolality and hyponatremia Status: Acute ACUTE HYPOXIC RESPIRATORY FAILURE - cont nc , pulm tx, supportive tx. ACUTE EXACERBATION OF COPD - iv steroids, add ics and labd, CAP RUL -- cont empiric abx, follow up cx sputum nml eloisa, MEIDASTINAL LAD reactive due to infection vs other, for possible bronchoscopy if no resolution w treatment of infection, follow up w pulmonology MORBID OBESITY BMI 40 - diet activity as tolerated DM insulin dependent uncontrolled cont iss, diet accuchecks, wean steroids DYSLIPIDEMIA - resume statin HYPONATREMIA - siadh? due to pulm infection, improving, mild contracture alkalosis post diuresis, stable, TOBACCO ABUSE nicotine addiction - nicoderm prn wd sx and counseling to stop dvt prophylaxis, heparin sq transfer to [facility] planning home 1-2 days when stable Progress Note: Quality VTE Deep Vein Thrombosis/Pulmonary Embolism Present on Admission: No
[2018-01-15] MEDS: Mirtazapine 15 MG Tablet PO SCH (20:30)
[2018-01-15] MEDS: Insulin Detemir Inj 1,000 UNIT/10 ML Vial SQ SCH (20:39)
--- NOTE | 2018-01-15 21:08 | P.PNIM ---
Subjective Interval history: 57yo m w copd admitted with cap, subsequently decompensated hypercapnic hypoxic respiratory failure requiring rescue bipap transferred to ICU, had ct scan of chest w concernin RUL pneumonia with mediastinal LAD of 4.1cm Patient seen and examined, continues to improve, wean on oxygen down to 1 L nasal cannula, wheezing is improved anteriorly but persist posteriorly, he denies chest pain, feels better Physical Exam Vital signs: Last Vital Signs Temp 97.9 F 01/15/18 16:00 Pulse 90 01/15/18 16:00 Resp 28 H 01/15/18 16:00 BP 135/83 01/15/18 16:00 Pulse Ox 93 L 01/15/18 16:27 Intake & Output 01/13/18 01/14/18 01/15/18 01/16/18 06:59 06:59 06:59 06:59 Intake Total 3310 / 3310 3250 / 3250 2350 / 2350 850 / 850 Output Total 1370 / 1370 1400 / 1400 2520 / 2520 1250 / 1250 Balance 1940 / 1940 1850 / 1850 -170 / -170 -400 / -400 Weight 115.3 kg 116.7 kg 113.4 kg Well-developed well-nourished 57-year-old male Awake alert oriented no acute distress Heart S1-S2 regular Lungs improved air movement anteriorly, posteriorly tight wheeze fair air movement Abdomen soft obese protuberant nontender Extremities no significant edema Results Labs CBC & Chem 7: 01/15/18 04:17 01/15/18 04:17 Labs: Microbiology 01/13/18 06:21 Sputum - Expectorated Sputum Gram Stain - Final 01/13/18 06:21 Sputum - Expectorated Sputum Sputum Culture - Final Heavy growth normal respiratory eloisa Assessment and Plan (1) Asthma: Code(s): J45.909 - Unspecified asthma, uncomplicated Status: Acute (2) Hyponatremia: Code(s): E87.1 - Hypo-osmolality and hyponatremia Status: Acute ACUTE HYPOXIC RESPIRATORY FAILURE - cont nc , pulm tx, supportive tx., wean nasal cannula, a.m. O2 walk test for home oxygen if needed ACUTE EXACERBATION OF COPD - iv steroids, changed to p.o., add ics and labd, CAP RUL -- cont empiric abx, follow up cx sputum nml eloisa, MEIDASTINAL LAD reactive due to infection vs other, for possible bronchoscopy if no resolution w treatment of infection, follow up w pulmonology MORBID OBESITY BMI 40 - diet activity as tolerated when stable DM insulin dependent uncontrolled cont iss, diet accuchecks, wean steroids DYSLIPIDEMIA - resume statin HYPONATREMIA - siadh? due to pulm infection, improving, mild contracture alkalosis post diuresis, stable, TOBACCO ABUSE nicotine addiction - nicoderm prn wd sx and counseling to stop dvt prophylaxis, heparin sq transfer to [facility] planning home 1-2 days when stable, O2 walk test in a.m. Progress Note: Quality VTE Deep Vein Thrombosis/Pulmonary Embolism Present on Admission: No
[2018-01-16] MEDS: Heparin - SQ 10,000 UNITS/ML Vial SQ SCH ×2 (05:38→16:02)
[2018-01-16] MEDS: Azithromycin 250 MG Tablet PO SCH (08:30)
[2018-01-16] MEDS: Docusate Sodium 100 MG Capsule PO SCH (08:30)
[2018-01-16] MEDS: Multivitamin/Minerals Therapeutic Tablet PO SCH (08:30)
[2018-01-16] MEDS: guaiFENesin 600 MG ER Tablet PO SCH (08:30)
[2018-01-16] MEDS: MethylPREDNISolone Sod Succinate Inj 40 MG/ML Vial IV.PUSH SCH (08:30)
[2018-01-16] MEDS: Polyethylene Glycol 3350 17 GM Packet PO SCH (08:31)
[2018-01-16] MEDS: Tiotropium Bromide 18 MCG/ACT Inhaler INH SCH (08:32)
[2018-01-16 08:52] VITALS: BP 136/91; TEMP 97.5
[2018-01-16] MEDS: Budesonide-Formoterol 160/4.5 MCG 6 GM Inhaler INH SCH (09:50)
[2018-01-16] MEDS: Insulin NovoLOG Aspart Correctional Sugar Inj SQ SCH ×3 (09:50→16:48)
[2018-01-16 12:37] VITALS: PULSE 86; O2SAT 94
--- NOTE | 2018-01-16 14:28 | P.PN ---
Subjective Interval history: alert no sob Physical Exam Vital signs: Vital Signs 01/15/18 14:52 01/15/18 14:54 01/15/18 16:00 Temperature 97.9 F Pulse Rate 87 90 Respiratory Rate 15 28 H Blood Pressure 135/83 Pulse Oximetry 95 94 L Pulse Oximetry [Resting on Room Air] Pulse Oximetry [Resting with Oxygen] 01/15/18 16:27 01/15/18 19:30 01/15/18 20:00 Temperature 98.7 F Pulse Rate 84 85 Respiratory Rate 22 23 Blood Pressure 127/81 Pulse Oximetry 93 L 94 L 97 Pulse Oximetry [Resting on Room Air] Pulse Oximetry [Resting with Oxygen] 01/15/18 23:15 01/16/18 00:00 01/16/18 02:35 Temperature 98.6 F Pulse Rate 88 Respiratory Rate Blood Pressure 117/81 Pulse Oximetry 94 L 98 93 L Pulse Oximetry [Resting on Room Air] Pulse Oximetry [Resting with Oxygen] 01/16/18 04:00 01/16/18 04:40 01/16/18 07:44 Temperature 97.6 F Pulse Rate 83 Respiratory Rate 22 18 Blood Pressure 129/82 Pulse Oximetry 94 L Pulse Oximetry [Resting on Room Air] Pulse Oximetry [Resting with Oxygen] 01/16/18 07:50 01/16/18 07:56 01/16/18 08:00 Temperature Pulse Rate 84 Respiratory Rate Blood Pressure Pulse Oximetry 92 L Pulse Oximetry [Resting on Room Air] 83 L Pulse Oximetry [Resting with Oxygen] 92 L 01/16/18 08:10 01/16/18 11:30 01/16/18 12:00 Temperature 97.5 F L Pulse Rate 82 82 86 Respiratory Rate 24 21 31 H Blood Pressure 136/91 H Pulse Oximetry 91 L 94 L Pulse Oximetry [Resting on Room Air] Pulse Oximetry [Resting with Oxygen] 01/16/18 13:12 Temperature Pulse Rate 86 Respiratory Rate 22 Blood Pressure Pulse Oximetry Pulse Oximetry [Resting on Room Air] Pulse Oximetry [Resting with Oxygen] Intake & Output 01/15/18 01/16/18 01/16/18 18:59 06:59 18:59 Intake Total 750 / 750 340 / 340 Output Total 1250 / 1250 1200 / 1200 625 / 625 Balance -500 / -500 -860 / -860 -625 / -625 Weight 110.5 kg Intake: IV 300 / 300 100 / 100 Rocephin Inj 2,000 MG In NS Inj 100 / 100 100 ML @ 200 mls/hr IV.SIG Q24H DIVYA Rx#:[id number] Oral 450 / 450 240 / 240 Output: Urine 1250 / 1250 1200 / 1200 625 / 625 Other: Date of Last Bowel Movement 01/13/18 # Bowel Movements 0 - Constitutional no acute distress - Routine HEENT Exam Head: Present: normocephalic Eye: Present: EOMI ENT: Present: mucous membranes moist - Routine Neck Exam Present: supple - Routine Respiratory Exam Present: CTA bilaterally - Routine Cardiovascular Exam Present: RRR, S1, S2 Results - Labs CBC & Chem 7: 01/15/18 04:17 01/15/18 04:17 Laboratory Results - last 24 hr 01/15/18 01/15/18 01/16/18 16:54 20:34 08:08 POC Glucose 163 H 133 H 112 H 01/16/18 11:47 POC Glucose 142 H Assessment and Plan - Plan RESOIRATORY FAILURE HYPOXIC / HYPERCAPNIC MAGEN/CSA SUSPECT PNA, R/O CA ASTHMA PLAN O2 NEEDED ANTIBX BRONCHODILATOR THERAPY BIPAP NEEDED
--- NOTE | 2018-01-16 14:29 | P.PN ---
Physical Exam Vital signs: Vital Signs 01/15/18 14:52 01/15/18 14:54 01/15/18 16:00 Temperature 97.9 F Pulse Rate 87 90 Respiratory Rate 15 28 H Blood Pressure 135/83 Pulse Oximetry 95 94 L Pulse Oximetry [Resting on Room Air] Pulse Oximetry [Resting with Oxygen] 01/15/18 16:27 01/15/18 19:30 01/15/18 20:00 Temperature 98.7 F Pulse Rate 84 85 Respiratory Rate 22 23 Blood Pressure 127/81 Pulse Oximetry 93 L 94 L 97 Pulse Oximetry [Resting on Room Air] Pulse Oximetry [Resting with Oxygen] 01/15/18 23:15 01/16/18 00:00 01/16/18 02:35 Temperature 98.6 F Pulse Rate 88 Respiratory Rate Blood Pressure 117/81 Pulse Oximetry 94 L 98 93 L Pulse Oximetry [Resting on Room Air] Pulse Oximetry [Resting with Oxygen] 01/16/18 04:00 01/16/18 04:40 01/16/18 07:44 Temperature 97.6 F Pulse Rate 83 Respiratory Rate 22 18 Blood Pressure 129/82 Pulse Oximetry 94 L Pulse Oximetry [Resting on Room Air] Pulse Oximetry [Resting with Oxygen] 01/16/18 07:50 01/16/18 07:56 01/16/18 08:00 Temperature Pulse Rate 84 Respiratory Rate Blood Pressure Pulse Oximetry 92 L Pulse Oximetry [Resting on Room Air] 83 L Pulse Oximetry [Resting with Oxygen] 92 L 01/16/18 08:10 01/16/18 11:30 01/16/18 12:00 Temperature 97.5 F L Pulse Rate 82 82 86 Respiratory Rate 24 21 31 H Blood Pressure 136/91 H Pulse Oximetry 91 L 94 L Pulse Oximetry [Resting on Room Air] Pulse Oximetry [Resting with Oxygen] 01/16/18 13:12 Temperature Pulse Rate 86 Respiratory Rate 22 Blood Pressure Pulse Oximetry Pulse Oximetry [Resting on Room Air] Pulse Oximetry [Resting with Oxygen] Intake & Output 01/15/18 01/16/18 01/16/18 18:59 06:59 18:59 Intake Total 750 / 750 340 / 340 Output Total 1250 / 1250 1200 / 1200 625 / 625 Balance -500 / -500 -860 / -860 -625 / -625 Weight 110.5 kg Intake: IV 300 / 300 100 / 100 Rocephin Inj 2,000 MG In NS Inj 100 / 100 100 ML @ 200 mls/hr IV.SIG Q24H DIVYA Rx#:[id number] Oral 450 / 450 240 / 240 Output: Urine 1250 / 1250 1200 / 1200 625 / 625 Other: Date of Last Bowel Movement 01/13/18 # Bowel Movements 0 Results - Labs CBC & Chem 7: 01/15/18 04:17 01/15/18 04:17 Laboratory Results - last 24 hr 01/15/18 01/15/18 01/16/18 16:54 20:34 08:08 POC Glucose 163 H 133 H 112 H 01/16/18 11:47 POC Glucose 142 H Assessment and Plan - Plan RESOIRATORY FAILURE HYPOXIC / HYPERCAPNIC JEANNE/CSA SUSPECT PNA, R/O CA ASTHMA PLAN O2 NEEDED ANTIBX BRONCHODILATOR THERAPY home todau officce i week needs f/u forpna/mass ?jeanne csa
[2018-01-16 16:01] VITALS: RESP 25
--- NOTE | 2018-01-16 16:05 | P.DS ---
Date of admission: 01/12/18 16:45 Primary care physician: UNKNOWN Attending physician on discharge: Donna Davidson Anticipated date of discharge: 01/16/18 Brief History from admission: Patient is a pleasant 57-year-old male with past medical history of asthma, hypertension, hyperlipidemia, and diabetes who presents to emergency department for worsening shortness of breath. Patient in usual state of health prior to development of symptoms 24 hours prior to presentation. Patient reports that he started to experience a cough yesterday nonproductive in nature, with some chest pain occasionally over the left side. Patient denied fever, chills, headache, flushed feeling, dizziness, disequilibrium, falls, wheezing, or GI abdominal pain. Review of systems positive for sore throat, tender neck glands , diarrhea, and generalized weakness. Patient feels much better on evaluation today. Of note patient is an active smoker of approximately 2 packs/day for the last 10 years. Patient denied unintentional weight loss. Patient denied hemoptysis, dysphagia, or odynophagia. No family history of malignancy noted by patient only diabetes in mother. In emergency department patient received imaging concerning for pneumonia for which he was transferred over to [place] for further medical management. Lab work also significant for hyponatremia and white blood cell count of 20. CT angiogram negative for pulmonary embolism but other acute findings noted. Chest x-ray significant for a diffuse patchy interstitial and airspace infiltrates throughout the right lung, upper lung greater than the right lower lung suggestive of pneumonia. Patient update on day of discharge: He is currently doing well. Denies any chest pain, shortness of breath, fever or chills. He underwent home oxygen walk test today and respiratory therapist recommended 3 L of oxygen continuous via nasal cannula. DS: Medications - Discharge Medications Prescriptions: budesonide-formoterol [Symbicort] 2 puff INH BID 30 Days g levofloxacin [Levaquin] 750 mg PO DAILY #3 tab prednisone [Deltasone] 20 mg PO BID #10 tab tiotropium bromide [Spiriva with HandiHaler] 18 mcg INH DAILY 30 Days #30 inh DS: Summary Hospital Course: On 01/12/2018, Mr. Dumas, a pleasant 57-year-old male with past medical history of asthma, hypertension, hyperlipidemia, and diabetes who presents to emergency department for worsening shortness of breath. He was treated for pneumonia as well as COPD exacerbation. Patient's chest x-ray showed right upper lobe consolidation. Pulmonology was consulted. During this admission, he developed CO2 retention due to COPD. He required some BiPAP support in the ICU. He continued to do well. We continued ceftriaxone and azithromycin for pneumonia while in the ICU. He was also given supportive care for diabetes. Home walk test was performed which indicated need for home oxygen. Patient was subsequently discharged home with home oxygen. He was advised to follow-up with ski molder regarding adenopathy, possible lung nodule as well as pneumonia. - Time Spent with Patient Total time spent providing and/or coordinating discharge services: Less than 30 minutes - Quality: VTE Deep Vein Thrombosis/Pulmonary Embolism Present on Admission: No Exam Vital signs: Vital Signs 01/15/18 16:00 01/15/18 16:27 01/15/18 19:30 Temperature 97.9 F Pulse Rate 90 84 Respiratory Rate 28 H 22 Blood Pressure 135/83 Pulse Oximetry 94 L 93 L 94 L Pulse Oximetry [Resting on Room Air] Pulse Oximetry [Resting with Oxygen] 01/15/18 20:00 01/15/18 23:15 01/16/18 00:00 Temperature 98.7 F 98.6 F Pulse Rate 85 88 Respiratory Rate 23 Blood Pressure 127/81 117/81 Pulse Oximetry 97 94 L 98 Pulse Oximetry [Resting on Room Air] Pulse Oximetry [Resting with Oxygen] 01/16/18 02:35 01/16/18 04:00 01/16/18 04:40 Temperature 97.6 F Pulse Rate Respiratory Rate 22 Blood Pressure 129/82 Pulse Oximetry 93 L 94 L Pulse Oximetry [Resting on Room Air] Pulse Oximetry [Resting with Oxygen] 01/16/18 07:44 01/16/18 07:50 01/16/18 07:56 Temperature Pulse Rate 83 Respiratory Rate 18 Blood Pressure Pulse Oximetry 92 L Pulse Oximetry [Resting on Room Air] 83 L Pulse Oximetry [Resting with Oxygen] 92 L 01/16/18 08:00 01/16/18 08:10 01/16/18 11:30 Temperature 97.5 F L Pulse Rate 84 82 82 Respiratory Rate 24 21 Blood Pressure 136/91 H Pulse Oximetry 91 L 94 L Pulse Oximetry [Resting on Room Air] Pulse Oximetry [Resting with Oxygen] 01/16/18 12:00 01/16/18 13:12 Temperature Pulse Rate 86 86 Respiratory Rate 31 H 22 Blood Pressure Pulse Oximetry Pulse Oximetry [Resting on Room Air] Pulse Oximetry [Resting with Oxygen] Intake & Output 01/15/18 01/16/18 01/16/18 18:59 06:59 18:59 Intake Total 750 / 750 340 / 340 Output Total 1250 / 1250 1200 / 1200 625 / 625 Balance -500 / -500 -860 / -860 -625 / -625 Weight 110.5 kg Intake: IV 300 / 300 100 / 100 Rocephin Inj 2,000 MG In NS Inj 100 / 100 100 ML @ 200 mls/hr IV.SIG Q24H DIVYA Rx#:[id number] Oral 450 / 450 240 / 240 Output: Urine 1250 / 1250 1200 / 1200 625 / 625 Other: Date of Last Bowel Movement 01/13/18 # Bowel Movements 0 Narrative: GENERAL: Alert, NAD. SKIN: Warm and dry. HEAD: Normocephalic. EYES: No scleral icterus. No injection or drainage. NECK: Supple, trachea midline. No JVD or lymphadenopathy. CARDIOVASCULAR: Regular rate and rhythm without murmurs, gallops, or rubs. RESPIRATORY: Coarse breath sounds, no appreciable wheezing. No accessory muscle use. GASTROINTESTINAL: Abdomen soft, non-tender, nondistended. MUSCULOSKELETAL: No cyanosis, or edema. BACK: Nontender without obvious deformity. No CVA tenderness. Results Procedures completed during hospitalization: None. Labs on day of discharge: Labs from last 24 hours 01/16/18 01/16/18 01/15/18 11:47 08:08 20:34 POC Glucose 142 H 112 H 133 H 01/15/18 16:54 POC Glucose 163 H - Impressions ITS Impressions Chest X-Ray 01/13/18 06:00 CONCLUSION: Worsening right lung infiltrate. Discharge Plan - Discharge Disposition Patient Disposition: 01 Discharge Home - Discharge Condition Condition: Fair - Discharge Order Discharge Orders: Discharge Order (Routine); Ordered 01/16/18 Ordered By: Donna Davidson - Discharge Details Anticipated Discharge Date: 01/16/18 - Physicians Team Primary Care Provider: UNKNOWN, Attending Provider: Donna Davidson Other Providers: Barbara Jimneez MD - Rxs /Orders / Referrals /Forms Prescriptions: New budesonide-formoterol [Symbicort] 160-4.5 mcg/actuation Hfa Aerosol Inhaler 2 puff INH BID 30 Days RF: 5 levofloxacin [Levaquin] 750 mg Tablet 750 mg PO DAILY Qty: 3 RF: 0 prednisone [Deltasone] 20 mg Tablet 20 mg PO BID Qty: 10 RF: 0 tiotropium bromide [Spiriva with HandiHaler] 18 mcg Capsule, W/Inhalation Device 18 mcg INH DAILY 30 Days Qty: 30 RF: 5 Continue albuterol sulfate [ProAir HFA] 90 mcg/actuation Hfa Aerosol Inhaler 2 inh Inhalation Q4-6H atorvastatin 40 mg Tablet 40 mg PO DAILY linagliptin [Tradjenta] 5 mg Tablet 5 mg PO DAILY metformin 1,000 mg Tablet 1,000 mg PO BID mirtazapine 7.5 mg Tablet 7.5 mg PO DAILY Changed insulin glargine [Lantus Solostar U-100 Insulin] 100 unit/mL (3 mL) Insulin Pen 20 unit SUBCUT HS Qty: 0 RF: 0 Changed from: 60 unit subcutaneous bedtime Ambulatory Orders / Order Sets / DME: Oxygen Tank (2-5 liter) (Routine) Timeframe: 99 Months Location: Determined by Patient Ordered By: Donna Davidson Referrals: UNKNOWN, [Primary Care Provider] - See Instructions ( Please call the ski molder to book the appointment to be seen within one week. ) Barbara Jimenez MD [Physician] - See Instructions (Please follow up with Dr. Jimenez within a week of discharge) - Discharge Instructions Patient Printed Instructions: Prednisone (By mouth), Levofloxacin (By mouth), Tiotropium (By breathing), Budesonide/Formoterol (By breathing), Using Oxygen at Home (DC), Pneumonia (DC)
== END 2018-01-16 19:30 | disposition home or self-care (01) ==
LOC: NEDDLT 11:07 → PH3 16:45 → PHICU 01-13 20:57
PROVIDERS: ADMIT Hospitalist; ATTEND Hospitalist